=== PATIENT | female | born 1960 ===

== ENCOUNTER 2020-01-16 15:05 | Emergency (ER) | payer MEDICAID ==
[~2020-01-16] VITALS: Ht 165.1 cm; Wt 90.0 kg
--- NOTE | 2020-01-16 15:35 | NUR ---
pt refusing wheelchair, amb with slow steady gait using her own walker to room 11 for isolation room
[2020-01-16 16:28] LABS: BASOPHILS # (AUTO) 0.1 X10'3 (0-0.2); EOSINOPHILS # (AUTO) 0.1 X10'3 (0-0.9); EOSINOPHILS % (AUTO) 1.3 % (0-6); HEMATOCRIT 42.7 % (35.0-45.0); HEMOGLOBIN 14.1 g/dl (12.0-16.0); LYMPHOCYTES # (AUTO) 2.7 X10'3 (1.1-4.8); LYMPHOCYTES % (AUTO) 36.6 % (21-51); MEAN CORPUSCULAR HEMOGLOBIN 31.5 PG (27.0-31.0); MEAN CORPUSCULAR HGB CONC 32.9 g/dL (33.0-36.5); MEAN CORPUSCULAR VOLUME 95.8 FL (78-98); MEAN PLATELET VOLUME 9.3 FL (7.4-10.4); MONOCYTES # (AUTO) 0.4 X10'3 (0-0.9); MONOCYTES % (AUTO) 5.1 % (2-12); NEUTROPHILS # (AUTO) 4.1 X10'3 (1.8-7.7); PLATELET COUNT 298 X10'3 (140-440); RED BLOOD COUNT 4.46 X10'6 (4.20-5.60); RED CELL DISTRIBUTION WIDTH 13.5 % (11.5-14.5); WHITE BLOOD COUNT 7.3 X10'3 (4.5-11.0)
[2020-01-16 16:38] LABS: D-DIMER 0.27 MG/L FEU (0-0.50)
[2020-01-16 16:51] LABS: ALANINE AMINOTRANSFERASE 15 U/L (12-78); ALBUMIN 3.2 G/DL (3.4-5.0); ALBUMIN/GLOBULIN RATIO 0.8 (1.1-1.5); ALKALINE PHOSPHATASE 111 IU/L (46-116); ANION GAP 9 (8-16); ASPARTATE AMINO TRANSFERASE 12 U/L (10-37); BILIRUBIN,TOTAL 0.3 MG/DL (0.1-1.0); BLOOD UREA NITROGEN 9 MG/DL (7-18); BUN/CREATININE RATIO 10.8 (6.6-38.0); CALCIUM 8.4 MG/DL (8.5-10.1); CHLORIDE 97 MMOL/L (99-107); CREATININE 0.83 MG/DL (0.40-0.90); POTASSIUM 3.5 MMOL/L (3.5-5.1); SODIUM 131 MMOL/L (135-145); TOTAL CARBON DIOXIDE 25.1 MMOL/L (24-32); eGFR 70 ML/MIN
[2020-01-16 16:54] LABS: GLUCOSE 534 MG/DL (70-104)
[2020-01-16] MEDS ORDERED: insulin regular, human 10 units/0.1 ml syringe IV ONE (16:55)
[2020-01-16] MEDS ORDERED: acetaminophen 325mg tablet PO ONE (16:55)
[2020-01-16] MEDS ORDERED: normal saline 1000ML IV soln IVB ONE (16:55)
--- NOTE | 2020-01-16 17:50 | NUR ---
PT WANTED TO LEAVE BUT AWARE OF SUGAR LEVEL AND AWARE OF NEED FOR MEDICATIONS TO HELP HER BODY.
[2020-01-16 18:36] VITALS: BP 194/107
== END 2020-01-16 18:41 | disposition home or self-care (01) ==
LOC: ER 15:06
DX: J44.1 Chronic obstructive pulmonary disease with (acute) exacerbation (principal); E11.65 Type 2 diabetes mellitus with hyperglycemia; I10 Essential (primary) hypertension; R51 Headache; F17.200 Nicotine dependence, unspecified, uncomplicated; Z88.8 Allergy status to other drugs, medicaments and biological substances
CPT/HCPCS: 36415; 71045; 80053; 82948; 83880; 84484; 85025; 85379; 87635; 93005; 96374; 99285; C9803; J1815; J7030; 96361